=== PATIENT | female | born 1980 | race Caucasian/White ===

== ENCOUNTER 2020-09-21 21:01 | Emergency (ER) | payer MEDICARE, OTHER ==
[~2020-09-21 21:01] MED LIST: BACTRIM DS TAB1 EACH PO; KEFLEX CAP 500500 MG PO; NAPROSYN500 MG PO; ZOFRAN4 MG PO
[2020-09-21 22:17] LABS: RED BLOOD COUNT 3.28 M/UL (4.00-5.10); WHITE BLOOD COUNT 7.5 K/UL (4.5-11.0)
[2020-09-21 22:37] LABS: HEMOGLOBIN 5.7 gm/dl (12.3-15.3)
[2020-09-21 22:42] LABS: BUN/CREATININE RATIO 17 (0-10)
[2020-09-22] MEDS ORDERED: FERROUS SULFAT325 M2 PO (00:17)
== END 2020-09-22 00:38 | disposition left against medical advice (07) ==
LOC: ER1 21:01
PROVIDERS: Student in an Organized Health Care Education/Training Program
DX: D64.9 Anemia, unspecified (principal); R60.0 Localized edema; F17.210 Nicotine dependence, cigarettes, uncomplicated
CPT/HCPCS: 71045; 80053; 80307; 81001; 82550; 82553; 83540; 83550; 83874; 83880; 84439; 84443; 84484; 84703; 85025; 86850; 86900; 86901; 86920; 93005; 96374; 99284; J1940

== ENCOUNTER 2020-09-26 01:44 | Emergency (ER) | payer MEDICARE, OTHER ==
[~2020-09-26 01:44] MED LIST changes: +FERROUS SULFAT325 M2 PO
[2020-09-26 05:09] LABS: RED BLOOD COUNT 3.27 M/UL (4.00-5.10); WHITE BLOOD COUNT 8.5 K/UL (4.5-11.0)
[2020-09-26 05:13] LABS: HEMOGLOBIN 5.7 gm/dl (12.3-15.3)
[2020-09-26 06:40] LABS: BUN/CREATININE RATIO 17 (0-10)
[2020-09-26] MEDS ORDERED: OMNICEF 300 MG300 MG PO (06:53)
== END 2020-09-26 07:12 | disposition home or self-care (01) ==
LOC: ER1 01:44
PROVIDERS: Emergency Medicine; Physician Assistant
DX: O99.019 Anemia complicating pregnancy, unspecified trimester (principal); O23.40 Unspecified infection of urinary tract in pregnancy, unspecified trimester; O99.330 Smoking (tobacco) complicating pregnancy, unspecified trimester; F17.200 Nicotine dependence, unspecified, uncomplicated
CPT/HCPCS: 80053; 81001; 83880; 84702; 84703; 85025; 85610; 85730; 86850; 86900; 86901; 87077; 87086; 87186; 96374; 99284; J0696

== ENCOUNTER 2020-11-24 20:04 | Outpatient (CLI) | payer MEDICARE, OTHER ==
[~2020-11-24 20:04] MED LIST changes: +OMNICEF 300 MG300 MG PO
== END 2020-11-24 21:44 | disposition home or self-care (01) ==
LOC: GENOP 20:04
PROVIDERS: Obstetrics & Gynecology
DX: O99.891 Other specified diseases and conditions complicating pregnancy (principal); N89.8 Other specified noninflammatory disorders of vagina; R10.9 Unspecified abdominal pain; O13.3 Gestational [pregnancy-induced] hypertension without significant proteinuria, third trimester; O99.353 Diseases of the nervous system complicating pregnancy, third trimester; G43.909 Migraine, unspecified, not intractable, without status migrainosus; O99.323 Drug use complicating pregnancy, third trimester; F11.20 Opioid dependence, uncomplicated; O99.843 Bariatric surgery status complicating pregnancy, third trimester; O99.333 Smoking (tobacco) complicating pregnancy, third trimester; F17.210 Nicotine dependence, cigarettes, uncomplicated; Z3A.31 31 weeks gestation of pregnancy
CPT/HCPCS: 80307; 81001; 83518; G0463

== ENCOUNTER 2020-12-01 12:40 | Observation (INO) | payer MEDICARE, OTHER ==
[~2020-12-01] VITALS: Ht 167.6 cm; Wt 72.6 kg
[2020-12-01 13:48] LABS: HEMOGLOBIN 11.4 gm/dl (12.3-15.3); RED BLOOD COUNT 4.28 M/UL (4.00-5.10); WHITE BLOOD COUNT 7.9 K/UL (4.5-11.0)
== END 2020-12-01 17:00 | disposition home or self-care (01) ==
LOC: GENOP 12:40 → OB 13:24
PROVIDERS: Obstetrics & Gynecology; ADMIT Obstetrics & Gynecology
DX: O13.3 Gestational [pregnancy-induced] hypertension without significant proteinuria, third trimester (principal); Z3A.31 31 weeks gestation of pregnancy; O99.353 Diseases of the nervous system complicating pregnancy, third trimester; G43.909 Migraine, unspecified, not intractable, without status migrainosus; O99.333 Smoking (tobacco) complicating pregnancy, third trimester; F17.210 Nicotine dependence, cigarettes, uncomplicated; O99.013 Anemia complicating pregnancy, third trimester; D50.9 Iron deficiency anemia, unspecified; O21.2 Late vomiting of pregnancy
CPT/HCPCS: 36415; 80307; 81001; 82247; 82248; 82565; 82570; 84156; 84450; 84460; 84550; 85025; 85379; 85384; 85610; 85730; 96360; 96361; 96374; 96375; G0378; J1200; J2765; J7120

== ENCOUNTER 2021-01-02 05:34 | Inpatient (IN) | payer MEDICARE, OTHER ==
[~2021-01-02] VITALS: Ht 167.6 cm; Wt 73.0 kg
[2021-01-02] MEDS ORDERED: HYDROXYZINE HCL25 MG PO (07:06)
[2021-01-02] MEDS ORDERED: PROTONIX20 MG PO (07:07)
[2021-01-03 03:59] LABS: HEMOGLOBIN 10.7 gm/dl (12.3-15.3)
[2021-01-04] MEDS ORDERED: HYDROCODON-ACE1 EAC6 PO (14:05)
[2021-01-04] MEDS ORDERED: IBUPROFEN800 MG PO (14:05)
[2021-01-04] MEDS ORDERED: VISTARIL 50 MG50 MG PO (14:05)
[2021-01-04] MEDS ORDERED: COLACE100 MG PO (14:05)
== END 2021-01-05 17:30 | disposition home or self-care (01) | DRG 786 ==
LOC: OB 05:34
PROVIDERS: ADMIT Obstetrics & Gynecology
PROC: 10D00Z1 Extraction of Products of Conception, Low, Open Approach (ICD-10-PCS; principal; 2021-01-02 09:00)
DX: O34.211 Maternal care for low transverse scar from previous cesarean delivery (principal); K83.1 Obstruction of bile duct; O99.354 Diseases of the nervous system complicating childbirth; O26.62 Liver and biliary tract disorders in childbirth; Z3A.37 37 weeks gestation of pregnancy; Z37.0 Single live birth; Z20.822 Contact with and (suspected) exposure to COVID-19; Z83.3 Family history of diabetes mellitus; Z82.49 Family history of ischemic heart disease and other diseases of the circulatory system; G43.909 Migraine, unspecified, not intractable, without status migrainosus
CPT/HCPCS: 36415; 80307; 81001; 85014; 85018; 85025; C9113; J0690; J1200; J2250; J2274; J2590; J2765; J2795; J7120; Q0177

== ENCOUNTER 2021-01-06 15:18 | Outpatient (CLI) | payer MEDICARE, OTHER ==
[~2021-01-06 15:18] MED LIST changes: +COLACE100 MG PO; +HYDROCODON-ACE1 EAC6 PO; +HYDROXYZINE HCL25 MG PO; +IBUPROFEN800 MG PO; +PROTONIX20 MG PO; +VISTARIL 50 MG50 MG PO
== END 2021-01-06 17:39 | disposition home or self-care (01) ==
LOC: GENOP 15:18
DX: O86.4 Pyrexia of unknown origin following delivery (principal); O99.325 Drug use complicating the puerperium; F11.20 Opioid dependence, uncomplicated; O99.845 Bariatric surgery status complicating the puerperium; O99.335 Smoking (tobacco) complicating the puerperium; F17.210 Nicotine dependence, cigarettes, uncomplicated; Z20.822 Contact with and (suspected) exposure to COVID-19
CPT/HCPCS: 81001; G0463; U0002

== ENCOUNTER 2021-09-08 11:28 | Emergency (ER) | payer OTHER ==
[2021-09-08] MEDS ORDERED: IBUPROFEN600 MG PO (13:32)
== END 2021-09-08 13:00 | disposition home or self-care (01) ==
LOC: ER1 11:28
DX: M25.532 Pain in left wrist (principal); F17.210 Nicotine dependence, cigarettes, uncomplicated
CPT/HCPCS: 73110; 99283